=== PATIENT | female | born 1985 | race Caucasian/White ===

== ENCOUNTER 2016-08-22 21:25 | Emergency (ER) | payer OTHER ==
[~2016-08-22] VITALS: Ht 165.1 cm; Wt 59.1 kg
[~2016-08-22 21:25] MED LIST: ONDA4TAB9 PO
[2016-08-22 21:35] VITALS: BP 117/74; PULSE 75; RESP 16; O2SAT 99
--- NOTE | 2016-08-22 23:25 | ED.REPORT ---
HPI-Headache Date of Service Aug 22, 2016 ED Provider: Keith Maguire DO The patient is a 31 year old female w/ a hx of migraines who presents to the ED due to a migraine then began 2 days ago shortly after waking up. She denies neck pain or stiffness. Headache was not maximal at onset nor was it the worst of her life. She did have some body soreness, changes in vision, flashing lights, photophobia, and blurred vision. Her vision still slightly blurred at the ED however this is improving. She used to give migraines regularly, but after she had children they went away. This is her first migraine since having kids. She is still . She denies fever, vomiting, diarrhea, and . Nursing Notes Stated Complaint: VISION CHANGES, BLURRED, SPOTTED Chief Complaint: Headache Nursing Notes Reviewed: Yes Allergies: Coded Allergies: No Known Allergies (Unverified , 08/22/16) Scheduled PRN Ondansetron ODT (Zofran ODT) 4 Mg Tablet 4 MG PO Q4H PRN PRN For Nausea General Time Seen by MD: 23:25 Chief Complaint Headache Hx Obtained From: Patient Arrived By: Walk-in Sudden in Onset?: Yes Onset Occurred: 2 days ago Symptom Duration: Since onset Quality: Painful Severity: Current: Mild Recent Healthcare: No recent doctor visit, No recent hospitalization Similar Sx Previous: Yes Risk-Headache NIH Stroke Scale Level of Consciousness: Alert and responsive (0) Ask Month & Age: Both questions right (0) Open/Close Eyes/Hand Information Resources Manager: Performs both tasks (0) Horizontal EO Movements: None (0) Visual Martin: No visual loss (0) Facial Palsy: Normal symmetry (0) Right Arm Motor Drift (10s): No drift 10 sec (0) Left Arm Motor Drift (10s): No drift 10 sec (0) Right Leg Motor Drift (5s): No drift 5 sec (0) Left Leg Motor Drift (5s): No drift 5 sec (0) Limb Ataxia FNF/Heel-Kang: No ataxia (0) Sensation (Arms/Legs/Face): No sensory loss (0) Language Aphasia: No aphasia, normal (0) Dysarthria: No dysarthria, normal (0) Extinction/Inattention: No exctinct/inattent (0) NIHSS Score: 0 Time NIHSS Performed: 00:03 Date NIHSS Performed: Aug 23, 2016 Past Medical History Past Medical History UTIs PVC's- takes metoprolol as needed Reports: Migraines Past Surgical History None Family History Noncontributory Smoking History Never Smoker Social History Alcohol Use: "Social" Other Social History: Good social support Ambulatory Status Independent Review of Systems Constitutional: Denies: Fever Eyes: Reports: Blurred bilateral, Photophobia GI: Denies: Nausea, Vomiting Neurologic: Reports: Headache, Vision change, Denies: Numbness Complete sys rev & neg: except as marked. Physical Exam Initial Vital Signs Vital Signs (First) Date Time Temp Pulse Resp B/P Pulse Ox O2 Delivery O2 Flow Rate FiO2 08/22/16 21:35 36.5 75 16 117/74 99 Room Air Initial VS: Reviewed ENT: Mucous membranes moist, Conjunctiva normal Respiratory: Breath sounds normal, Clear to auscultation Cardiovascular: Regular rate & rhythm, Heart sounds normal Abdomen / GI: Soft, Non-tender, No guarding, No rebound Extremities: Vascular intact, Neuro intact, No swelling Skin: Warm, Dry General/Constitutional: Awake, Alert, Well appearing, Cooperative, Not toxic appearing Head / Eyes: Atraumatic, Normocephalic, PERRL, EOMI Neck: Atraumatic, Supple, No meningismus Neurologic: Oriented X3, Speech NL, No motor deficits, No sensory deficits, Reflexes equal bilat Interpretation & Diagnostics Lab Results Interpretation Result Diagram: 08/23/16 0032 08/23/16 0032 Test 08/23/16 00:32 White Blood Count 6.4th/mm3 (3.8-10.1) Red Blood Count 3.92mil/mm3 (3.90-5.20) Hemoglobin 11.8g/dL (12.0-15.6) Hematocrit 36.3% (35.0-46.0) Mean Corpuscular Volume 92.6fL (81-100) Mean Corpuscular Hemoglobin 30.1pg (27.0-35.0) Mean Corpuscular Hemoglobin Concent 32.5% (32.0-37.0) Red Cell Distribution Width 12.9% (12.3-15.4) Platelet Count 244bil/L (150-400) Neutrophils (%) (Auto) 53.8% (40-74) Lymphocytes (%) (Auto) 31.4% (14-46) Monocytes (%) (Auto) 12.3% (4-12) Eosinophils (%) (Auto) 2.0% (0-5) Basophils (%) (Auto) 0.3% (0-3) Sodium Level 140mEq/L (134-144) Potassium Level 3.7mEq/L (3.5-5.2) Chloride Level 102mEq/L (97-108) Carbon Dioxide Level 24mmol/L (18-29) Blood Urea Nitrogen 21mg/dL (6-20) Creatinine 0.68mg/dL (0.57-1.00) Estimat Glomerular Filtration Rate 145mL/min (>59) Glucose Level 167mg/dL (60-99) Calcium Level 9.0mg/dL (8.5-10.1) Total Bilirubin 0.2mg/dL (0.0-1.2) Aspartate Amino Transf (AST/SGOT) 17U/L (0-50) Alanine Aminotransferase (ALT/SGPT) 11U/L (0-32) Alkaline Phosphatase 54U/L (25-150) C-Reactive Protein 0.9mg/dL (0.0-0.5) Total Protein 6.9g/dL (6.4-8.4) Albumin 4.2g/dL (3.4-5.0) Hold Birch Top Tube Received (Received) CT Head Interpretation IMPRESSION: no acute findings Study: Head CT no contrast Interpretation / Wet Read by: Wet read ED physician NL CT Head Findings: No acute disease Re-Eval/Medical Decision Med Decision/Clinical Course CT scan is reassuring. Laboratory work is reassuring. Her symptoms are not consistent with subarachnoid hemorrhage or meningitis I was more concerned about a mass lesion pushing on her optic nerve. Optic neuritis seems less likely but still the differential. No signs of an acute emergent condition right now however I think she is going to need outpatient follow-up. The blurred vision is concerning enough that she should see an binder and box builder. I would also consider seeing a neurologist for possible MRI if multiple sclerosis is a possibility. She was asymptomatic at discharge. Her visual acuity was intact. Her retinas look normal to me. I think she I did not dilate her pupils however. Pupils were equal and reactive. Her NIH stroke score was 0. I will place her on Imitrex and Phenergan for the next headache that she has however I recommend close outpatient follow-up. Re-Evaluation/Progress : Time of Eval: 00:04 Re-Evaluation/Progress Note: Pt rechecked. NIH stroke scale O. Counseled Regarding: Diagnosis, Lab results, Need for follow-up, When/why to return to ED Discharge & Departure Impression: Primary Impression: Headache Headache type: unspecified Headache chronicity pattern: acute headache Intractability: not intractable Qualified Code: R51 - Headache Disposition: Home Discharge Condition All VS Reviewed: Yes Condition: Stable Additional Instructions: Your CT scan was reassuring. Follow up with an binder and box builder and neurologist. Return to the Emergency Department for any new or worsening symptoms. Call the referral physicians offices on Thursday for a follow up appointment. Your primary care physician should be seen in follow up as well. . For your next headache you may take 1 Imitrex every 8 hours. Take 1 Phenergan every 8 hours as needed for nausea. Rest in a darkened room. Do not breast-feed for 4-6 hours after taking either of these medications. If you develop a fever or sudden onset severe headache or associated neck stiffness then come right back to the emergency department for recheck. Do not drive while taking the Phenergan. Return if any problems or any worsening symptoms. Referrals: Casey Camacho DO (PCP) Monica Clay MD, Patti J MD Scribe Attestation Portion of this note were transcribed by Elizabeth Camarillo. I, Dr. Maguire, personally performed the history, physical exam, and medical decision-making: I reviewed and confirmed the accuracy for the information in the transcribed note. Signed by: chioma Mcdowell, 08/23/16 0100 copies to: Casey Camacho DO; Monica Clay MD; Ally Moore MD, Todd P DO Aug 22, 2016 23:25 Elizabeth Camarillo Aug 23, 2016 00:02
[2016-08-23 00:39] LABS: BASOPHILS % (AUTO) 0.3 % (0-3); MONOCYTES % (AUTO) 12.3 % (4-12); Mean Corpuscular Hemoglobin 30.1 pg (27.0-35.0); Mean Corpuscular Volume 92.6 fL (81-100); NEUTROPHILS % (AUTO) 53.8 % (40-74); Platelet Count 244 bil/L (150-400)
--- NOTE | 2016-08-23 06:20 | DRSVH ---
PROCEDURE: CT BRAIN WITHOUT CONTRAST ([id number]) INDICATIONS: headache blurred vision TECHNIQUE: Noncontrast 4.5 mm thick angled axial sections acquired from the foramen magnum to the vertex, with c oronal reformats. COMPARISON: None. FINDINGS: Image quality: Excellent. CSF spaces: Basal cisterns are patent. No extra-axial fluid collections. Ventricles are normal in size and shape. Brain: No midline shift. No intracranial masses or hemorrhage. Ruelas-white matter interface is norm al. Skull and face: Calvarium and visualized facial bones are intact, without suspicious lesions. Sinuses: Visualized sinuses demonstrate near-complete opacification of left sphenoid sinus. IMPRESSION: 1. No acute intracranial process. 2. Near complete opacification of the sphenoid sinus consistent with sinus disease. Dictated by: Nisreen Hoskins M.D. on 08/23/2016 at 6:17 Approved by: Nisreen Hoskins M.D. on 08/23/2016 at 6:18
== END 2016-08-23 03:21 | disposition home or self-care (01) ==
LOC: SED 21:25
DX: R51 Headache (principal)

== ENCOUNTER 2016-08-23 22:18 | Emergency (ER) | payer OTHER ==
[~2016-08-23] VITALS: Ht 165.1 cm; Wt 59.1 kg
[2016-08-23 22:23] VITALS: BP 97/67; PULSE 88; RESP 16; O2SAT 98
--- NOTE | 2016-08-23 22:47 | ED.REPORT ---
HPI-Headache Date of Service Aug 23, 2016 ED Provider: Kostas Easley MD Nursing Notes Stated Complaint: HEADACHE, BLURRED VISION Chief Complaint: Headache Nursing Notes Reviewed: Yes Allergies: Coded Allergies: No Known Allergies (Unverified , 08/22/16) Scheduled PRN Ondansetron ODT (Zofran ODT) 4 Mg Tablet 4 MG PO Q4H PRN PRN For Nausea General Time Seen by MD: 22:41 Chief Complaint Migraine headache Hx Obtained From: Patient Arrived By: Walk-in Sudden in Onset?: No Onset Occurred: 2 days ago Symptom Duration: Since onset Location: : Generalized Quality: Painful Severity: Current: Severe Severity: Maximum: Severe Recent Healthcare: Recent doctor visit Similar Sx Previous: Yes Past Medical History Past Medical History UTIs PVC's- takes metoprolol as needed Reports: Migraines Past Surgical History None Family History Noncontributory Smoking History Never Smoker Social History Alcohol Use: "Social" Other Social History: Good social support Ambulatory Status Independent Physical Exam Initial Vital Signs Vital Signs (First) Date Time Temp Pulse Resp B/P Pulse Ox O2 Delivery O2 Flow Rate FiO2 08/23/16 22:23 36.6 88 16 97/67 98 Room Air Discharge & Departure Referrals: Casey Camacho DO (PCP) Kostas Easley MD Aug 23, 2016 22:47 Roopa Tran Aug 23, 2016 22:56
--- NOTE | 2016-08-23 22:57 | ED.REPORT ---
HPI-Headache Date of Service Aug 23, 2016 ED Provider: Keith Maguire DO A 31 year old female with a history of UTI and migraines presents to the ED complaining of headache and vision changes. The pt was seen in the ED yesterday for a headache and vision changes. Her condition improved and she was discharged with Imitrex and Phenergan. The pt woke this morning without a headache, but began experiencing a severe headache and vision changes after waking from a nap later in the day. She describes blurred vision and loss of visual acuity in her left eye. These symptoms have not improved since despite the use of medication. Nursing Notes Stated Complaint: HEADACHE, BLURRED VISION Chief Complaint: Headache Nursing Notes Reviewed: Yes Allergies: Coded Allergies: No Known Allergies (Unverified , 08/22/16) Scheduled PRN Ondansetron ODT (Zofran ODT) 4 Mg Tablet 4 MG PO Q4H PRN PRN For Nausea General Time Seen by MD: 22:56 Chief Complaint Other (Vision loss) Hx Obtained From: Patient Arrived By: Walk-in Sudden in Onset?: Yes Onset Occurred: 5 - 8 hours ago Symptom Duration: Since onset Recent Healthcare: No recent hospitalization, Recent doctor visit Similar Sx Previous: No Past Medical History Past Medical History UTIs PVC's- takes metoprolol as needed migraines Reports: Migraines Past Surgical History x2 Family History Noncontributory Smoking History Never Smoker Social History Alcohol Use: "Social" Other Social History: Good social support, Ambulatory Status Independent Review of Systems Constitutional: Denies: Fever Eyes: Reports: Blurred left, Visual loss left (loss of visual acuity) GI: Denies: Abdominal pain Musculoskeletal: Denies: Back pain Skin: Denies Rash Neurologic: Reports: Headache Complete sys rev & neg: except as marked. Physical Exam Initial Vital Signs Vital Signs (First) Date Time Temp Pulse Resp B/P Pulse Ox O2 Delivery O2 Flow Rate FiO2 08/23/16 22:23 36.6 88 16 97/67 98 Room Air Initial VS: Reviewed General/Constitutional: Awake, Alert Head / Eyes: Atraumatic, Normocephalic, PERRL, EOMI blurred vision in the left eye visual acuity loss Neck: Atraumatic, Supple, Full range of motion Neurologic: Oriented X3, Speech NL, No motor deficits, No sensory deficits ENT: Atraumatic, Airway patent, Mucous membranes moist Respiratory / Chest: Atraumatic, Breath sounds NL, Breath sounds = bilat, No respiratory distress Cardiovascular: Heart rate NL, Regular rhythm, Heart sounds NL Abdomen: Atraumatic, Soft, Non-tender Skin: Atraumatic, Color NL, No rash, Warm, Dry Psychiatric: Affect NL, Mood NL Back: Atraumatic, Full range of motion Upper Extremity / MS: Atraumatic, Full range of motion Lower Extremity / Pelvis / MS: Atraumatic, Full range of motion Interpretation & Diagnostics Lab Results Interpretation Result Diagram: 08/23/162304 Test 08/23/16 23:05 08/23/16 23:30 White Blood Count 5.9th/mm3 (3.8-10.1) Red Blood Count 4.05mil/mm3 (3.90-5.20) Hemoglobin 12.2g/dL (12.0-15.6) Hematocrit 36.9% (35.0-46.0) Mean Corpuscular Volume 91.1fL (81-100) Mean Corpuscular Hemoglobin 30.1pg (27.0-35.0) Mean Corpuscular Hemoglobin Concent 33.1% (32.0-37.0) Red Cell Distribution Width 12.8% (12.3-15.4) Platelet Count 273bil/L (150-400) Neutrophils (%) (Auto) 46.0% (40-74) Lymphocytes (%) (Auto) 34.8% (14-46) Monocytes (%) (Auto) 16.5% (4-12) Eosinophils (%) (Auto) 2.2% (0-5) Basophils (%) (Auto) 0.3% (0-3) Band Neutrophils % 0% (1-5) Hold Birch Top Tube Received (Received) CSF Appearance Clear (CLEAR) CSF Color Colorless (COLORLESS) CSF WBC 0/mm3 (0-5) CSF RBC 0/mm3 CSF Mononuclear WBCs % CSF Polynuclear WBCs % CSF Other Cells CSF Glucose 56mg/dL (45-90) CSF Total Protein 27mg/dL (15-45) Pulse Oximetry Interpretation Pulse Oximetry Interpretation: 98% on room air Pulse Oximetry: Pulse Ox normal Procedures Lumbar Puncture Text / Dict Note: opening pressure: 7 mm of water Time: 23:22 Procedure Performed by: ED physician Consent / Setup / Site Prep: Informed consent provided, Consent from patient , Time-out performed, Hand hygiene observed, Stand sterile technique, Sterile drapes applied, Patient left lateral Skin Preparation Agent: Betadine Local Anesthesia: Lidocaine 1% Inserted Needle at: L3 L4 Post-Procedure / Complications: Antibiotic oint applied, Dressing applied, No complications, Tolerated procedure well, Patient stable Re-Eval/Medical Decision Med Decision/Clinical Course Normal opening and closing CSF pressure. CSF studies were normal. Meningitis and subarachnoid hemorrhage adequately ruled out. Will treat for migraine and follow up with neurology to consider MRI for possible multiple sclerosis workup. I also recommend that she sees an assisted living director event that she has a refractive error leading to her headaches. No signs or symptoms consistent with acute angle closure glaucoma. Source of Hx: Old records Re-Evaluation/Progress #1: Time of Eval: 23:22 )( Patient Status: Condition improved Re-Evaluation/Progress Note: Pt rechecked, who is comfortable. Lumbar puncture is performed without complication. Re-Evaluation/Progress #2: Time of Eval: 00:14 )( Patient Status: Condition improved Re-Evaluation/Progress Note: Pt rechecked, whose condition has improved. She is informed of her lab results. The diagnosis and plan for discharge are discussed. The pt understands and agrees with the plan. All questions are addressed at this time. Counseled Regarding: Diagnosis, Lab results, Need for follow-up, When/why to return to ED Discharge & Departure Impression: Primary Impression: Headache Headache type: unspecified Headache chronicity pattern: acute headache Intractability: not intractable Qualified Code: R51 - Headache Disposition: Home Discharge Condition All VS Reviewed: Yes Condition: Stable Patient Instructions: Acute Headache (ED), Migraine Headache (DC) Additional Instructions: The cerebrospinal fluid studies were normal. No signs of meningitis or subarachnoid hemorrhage. Normal protein content. I suspect that sure suffering with migraines. I do recommend that she follow-up with an life insurance specialist that we at least once to be sure that it is not a refractive error causing her headaches and blurred vision. I also recommended to follow-up and discussed her symptoms with a neurologist and consider MRI. Primary care physician could certainly set up for an MRI as well. Use the medications as prescribed yesterday. Do not drive today is to receive sedating medications. Return if any problems or any new or worsening symptoms. Referrals: Casey Camacho DO (PCP) Ramirez Attestation Portions of this note were transcribed by Fatou Brody. I, Dr. Maguire personally performed the history, physical exam and medical decision-making; I reviewed and confirmed the accuracy of the information in the transcribed note. Signed by: Ramirez Coulter, 08/24/16 and 0032. copies to: Casey Camacho DO; Ally Moore MD; Mason Campos MD, Todd P DO Aug 23, 2016 22:57 FATOU BRODY Aug 23, 2016 23:08
[2016-08-23] MEDS ORDERED: Ondansetron 2 mg/mL 2 mL Inj IVPUSH PRN (23:05)
[2016-08-23 23:24] LABS: Mean Corpuscular Hemoglobin 30.1 pg (27.0-35.0); Mean Corpuscular Volume 91.1 fL (81-100)
[2016-08-23 23:25] LABS: BASOPHILS % (AUTO) 0.3 % (0-3); EOSINOPHILS % (AUTO) 2.2 % (0-5); MONOCYTES % (AUTO) 16.5 % (4-12); Platelet Count 273 bil/L (150-400)
[2016-08-23] MEDS: fentaNYL-PF 50 mCg/mL 2 mL Inj IVPUSH PRN ×2 (23:25→23:45)
[2016-08-23] MEDS ORDERED: Dexamethasone Inj 10 MG in 0.9% Sodium Chloride-Pha MIX 50 ML IV ONE (23:45)
[2016-08-23] MEDS ORDERED: 0.9% Sodium Chloride 1,000 ML IV ONE (23:45)
[2016-08-24 00:14] LABS: APPEARANCE,CSF CLEAR (CLEAR); COLOR,CSF COLORLESS (COLORLESS); WHITE BLOOD CELL,CSF 0 /mm3 (0-5)
== END 2016-08-24 01:15 | disposition home or self-care (01) ==
LOC: SED 22:18
DX: R51 Headache (principal); H53.8 Other visual disturbances; Z87.440 Personal history of urinary (tract) infections
CPT/HCPCS: 36415; 62270; 82945; 84155; 85025; 87070; 87205; 89051; 96374; 96375; 99285; J1100; J1200; J2405; J3010; J7030

== ENCOUNTER 2016-08-25 19:24 | Emergency (ER) | payer OTHER ==
[~2016-08-25] VITALS: Ht 165.1 cm; Wt 59.1 kg
[2016-08-25 19:28] VITALS: BP 107/59; PULSE 64; RESP 16; O2SAT 100
--- NOTE | 2016-08-25 21:15 | ED.REPORT ---
HPI-Headache Date of Service August 25, 2016 ED Provider: Caitlin Garcia MD The patient is a 31 year old female who presents to the emergency department complaining of an intermittent diffuse headache that began 5 days ago. She has also noticed blurred vision and "flashes of lights." Her pain and visual changes has fluctuated since onset. Her pain is currently at a 6-7/10. She has been seen twice since onset and had a normal head CT during the first visit and a negative lumbar puncture during the second visit. She has had an intermittent sore throat over the last few months, she has had negative strep swabs. She has had headaches prior to having children but she has not had any recently. She has been able to eat and drink normally. She denies fever, chills, nausea, vomiting, numbness, weakness or problem walking. Nursing Notes Stated Complaint: SEVERE HEADACHE, VISION PROBLEMS Chief Complaint: Headache Nursing Notes Reviewed: Yes Allergies: Coded Allergies: No Known Allergies (Unverified , 08/25/16) Scheduled PRN Ondansetron ODT (Zofran ODT) 4 Mg Tablet 4 MG PO Q4H PRN PRN For Nausea General Time Seen by MD: 21:07 Chief Complaint Headache Hx Obtained From: Patient, Spouse Arrived By: Walk-in Sudden in Onset?: No Onset Occurred: 5 days ago Symptom Duration: Intermittent Location: : Generalized Quality: Painful Severity: Current: Moderate Severity: Maximum: Severe Recent Healthcare: Recent doctor visit, Prior workup (LP and head CT) Similar Sx Previous: No Past Medical History Past Medical History UTIs PVC's- takes metoprolol as needed Reports: Migraines Past Surgical History x2 Family History Noncontributory Smoking History Never Smoker Social History Alcohol Use: "Social" Other Social History: Good social support, , Local resident Ambulatory Status Independent Review of Systems Constitutional: Denies: Chills, Fever Eyes: Reports: Blurred bilateral Ears / Nose / Throat: Reports: Sore throat GI: Denies: Nausea, Vomiting Neurologic: Reports: Headache, Vision change, Denies: Focal weakness, Numbness, Problem walking, Weakness Complete sys rev & neg: except as marked. Physical Exam Initial Vital Signs Vital Signs (First) Date Time Temp Pulse Resp B/P Pulse Ox O2 Delivery O2 Flow Rate FiO2 08/25/16 19:28 36.0 64 16 107/59 100 Room Air Initial VS: Reviewed, Vital signs normal ENT: Mucous membranes moist, Conjunctiva normal, No scleral icterus Respiratory: Breath sounds normal, Clear to auscultation, No respiratory distress Cardiovascular: Regular rate & rhythm, Heart sounds normal, Intact distal pulses Abdomen / GI: Soft, Non-tender, No guarding, No rebound, No distention Lymphatic: No lymphadenopathy Extremities: Vascular intact, Neuro intact, No swelling, No tenderness Skin: Warm, Dry, No cyanosis Psychiatric: Mood/affect normal, Behavior normal, Normal thought content General/Constitutional: Awake, Alert Head / Eyes: Atraumatic, Normocephalic, PERRL, EOMI, No nystagmus, No photophobia, Conjunctiva NL, Temporal arteries NL Neck: Atraumatic, Supple, No meningismus, Full range of motion, No swelling, Non-tender, No masses Neurologic: Oriented X3, Speech NL, No motor deficits, No sensory deficits, CN II - XII intact, Cerebellar NL, Memory NL Re-Eval/Medical Decision Med Decision/Clinical Course The patient presents with her third visit for headache. From her history I was not concerned for intracranial mass, meningitis, or hemorrhage. The patient has already had a CT and lumbar puncture. She is G symptomatically here with significant improvement in her headache. She given additional medication to completely resolve her headache but she declined. Source of Hx: Old records, Family Re-Evaluation/Progress : Time of Eval: 22:30 Re-Evaluation/Progress Note: Rechecked the patient. She is feeling better. Discussed previous results, today's exam findings, diagnosis, and plan for discharge. All questions were addressed. Counseled Regarding: Diagnosis, Need for follow-up, When/why to return to ED Discharge & Departure Impression: Primary Impression: Headache Headache type: unspecified Headache chronicity pattern: unspecified pattern Intractability: not intractable Qualified Code: R51 - Headache Disposition: Home Discharge Condition All VS Reviewed: Yes Condition: Stable Patient Instructions: Acute Headache (ED) Additional Instructions: Thank you for entrusting us with your care today. Your exam findings and head CT and lumbar puncture results from your previous visits are reassuring. I do not believe you will benefit from any further workup today. Make sure to drink plenty of fluids. Use ibuprofen or naproxen as needed for your pain. The next step is to followup with a neurologist. I recommend calling around to other neurology offices to see if you are able to get an earlier appointment. Seek care for fever, vomiting, neck pain, or any other new or worsening symptoms. Referrals: Casey Camacho DO (PCP) Ramirez Attestation Portions of this note were transcribed by Mary Cash. I, Dr. Garcia personally performed the history, physical exam and medical decision-making; I reviewed and confirmed the accuracy of the information in the transcribed note. Signed by: Ramirez Degroot, 08/25/2016 at 2245. copies to: Casey Camacho Jena M MD August 25, 2016 21:15 Mary Cash August 25, 2016 21:19
[2016-08-25] MEDS ORDERED: ProchlorPERazine 5 mg/mL 2 mL Inj IVPUSH ONE (21:30)
[2016-08-25] MEDS ORDERED: 0.9% Sodium Chloride 1,000 ML IV ONE (21:30)
[2016-08-25] MEDS ORDERED: Dexamethasone Inj 10 MG in 0.9% Sodium Chloride-Pha MIX 50 ML IV ONE (21:30)
[2016-08-25 22:55] VITALS: BP 99/67; PULSE 58; RESP 16; O2SAT 98
== END 2016-08-25 22:33 | disposition home or self-care (01) ==
LOC: SED 19:42
DX: R51 Headache (principal)
CPT/HCPCS: 96374; 96375; 99284; J0780; J1100; J1200; J1885; J7030

== ENCOUNTER 2016-08-27 19:12 | Emergency (ER) | payer OTHER ==
[~2016-08-27] VITALS: Ht 165.1 cm; Wt 59.1 kg
[2016-08-27 19:22] VITALS: BP 116/74; PULSE 71; RESP 16; O2SAT 99
--- NOTE | 2016-08-27 21:23 | ED.REPORT ---
HPI-Headache Date of Service August 27, 2016 ED Provider: Shahram Soto MD A 31 year old female with a history of UTI and PVCs presents to the ED with a generalized headache onset one week ago. The headache began benignly, but then the patient developed blurred vision five days ago and tinnitus today. She has been seen in the ED three times since onset, most recently 08/25/16, and has received a negative head CT and a negative LP. The patient reports a recent sore throat but denies other recent illness. She denies numbness, weakness, bilateral lower extremity swelling, neck stiffness, cough, or other symptoms. The patient also denies recent trauma, recent ill contacts, or recent travel. She has been given many different headache medications with no relief. The patient was seen by an dry clipper tender today, who did "many different tests" and referred her to a neuro-dry clipper tender. Nursing Notes Stated Complaint: HEADACHE/MIGRANE X 1 WEEK Chief Complaint: Headache Nursing Notes Reviewed: Yes ([facility] app not reconciled) Allergies: Coded Allergies: No Known Allergies (Unverified , 08/27/16) Scheduled PRN Ondansetron ODT (Zofran ODT) 4 Mg Tablet 4 MG PO Q4H PRN PRN For Nausea General Time Seen by MD: 21:20 Chief Complaint Headache Hx Obtained From: Patient Arrived By: Walk-in Sudden in Onset?: No Onset Occurred: 1 week ago Symptom Duration: Since onset Location: : Generalized Quality: Painful Severity: Current: Moderate Severity: Maximum: Moderate Pertinent Negative: Relieved by nothing Recent Healthcare: Recent doctor visit, Recent testing, Prior workup Past Medical History Past Medical History Notes: Seen in the ED 08/22, 08/23, and 08/25 for headaches-head CT, LP negative on 08/23/16 Past Medical History UTIs PVC's- takes metoprolol as needed Reports: Migraines Past Surgical History x2 Family History Noncontributory Smoking History Never Smoker Social History Alcohol Use: "Social" Other Social History: Good social support, , Local resident Ambulatory Status Independent Review of Systems Review of Systems Note: + Tinnitus - Neck stiffness Constitutional: Denies: Fever Eyes: Reports: Blurred bilateral Ears / Nose / Throat: Reports: Sore throat (Recently) GI: Denies: Diarrhea, Vomiting Musculoskeletal: Denies: Extremity swelling Neurologic: Reports: Headache, Denies: Numbness, Weakness Complete sys rev & neg: except as marked. Respiratory: Denies: Non-productive cough, Shortness of breath Physical Exam Initial Vital Signs Vital Signs (First) Date Time Temp Pulse Resp B/P Pulse Ox O2 Delivery O2 Flow Rate FiO2 08/27/16 19:22 36.0 71 16 116/74 99 Room Air Initial VS: Reviewed ENT: Conjunctiva normal, No scleral icterus Respiratory: Breath sounds normal, Clear to auscultation, No respiratory distress Cardiovascular: Regular rate & rhythm, Heart sounds normal Skin: Warm, Dry Psychiatric: Mood/affect normal, Behavior normal General/Constitutional: Awake, Alert Head / Eyes: Atraumatic, Normocephalic, PERRL, EOMI Temporal Artery: Negative: Temp artery tender bilat Neck: Supple, Full range of motion Neurologic: Oriented X3, Speech NL, No motor deficits, No sensory deficits Interpretation & Diagnostics Lab Results Interpretation Test 08/27/16 22:23 08/27/16 22:24 Erythrocyte Sedimentation Rate 9mm/hr (0-32) Hold Birch Top Tube Received (Received) Lab Results Interpretation: Sedimentation rate 9, normal Re-Eval/Medical Decision Med Decision/Clinical Course This is a 31-year-old female who presents to the emergency department with a persistent headache. She still had it for 5-6 days. She has had multiple ED visits, and extensive workup that included negative head CT, and a normal lumbar puncture. She returns, headaches not as severe, has no fever, no neck stiffness, no neurologic symptoms, no history of trauma, still has some borderline visual symptoms, she has a little bit of tenderness as well developing. She seen by ophthalmology today, definitive etiology has not been established. She was, including promethazine, ibuprofen with inadequate relief and still feels uncomfortable. Mild positional component, but it preceded the lumbar puncture-and is only mild. Exam she sitting in a dark room, she is has a normal neurologic exam without focal deficits. Her ABCD visits workup and reviewed, the patient's R he had major pathology excluding the CT and LP negative. She clinically appears well. She does not have classic temporal artery tenderness but combination of unexplained headache and visual symptoms, sedimentation rate was added-and is returned normal. The patient has tried multiple rounds of the standard headache pathway, and so today given the recurrent-a single dose of Dilaudid was given-with relief of symptoms. She is being discharged with a few hydrocodone, but still advised to follow up with neurology and a referral to Dr. Lee's office has been provided. Return precautions reviewed. The patient clinically appears well. vitals are normal. Labs are normal. CT/LP are normal. She feels much better and wishes to go home. Although she has had multiple provider visits, I am not finding indication for emergent MRI imaging at this hour, but I think the patient about outpatient to have that considered as the next step. Source of Hx: Old records Re-Evaluation/Progress : Time of Eval: 22:56 )( Patient Status: Condition improved Re-Evaluation/Progress Note: Patient is feeling much better. Discussed with patient lab results, diagnosis, and plan for discharge. Follow-up and return to the ER instructions given. Patient agrees with plan for care and all questions were addressed. Differential Diagnosis: Positive: Headache, Negative: Carbon monoxide toxicity, Carotid artery dissection, Cerebellar ischemia, Cerebrovascular accident, Closed head injury, Encephalitis, Fever- induced, Headache, hypertensive, Headache, muscular contra, Headache, post LP, Headache, post-traumatic, Hemorrhage, cerebellar, Hemorrhage, epidural, Hemorrhage, subarachnoid, Hemorrhage, subdural, Intracranial abscess, Medication reaction, Meningitis, Sinusitis, Temporal arteritis Counseled Regarding: Diagnosis, Lab results, Need for follow-up, When/why to return to ED Discharge & Departure Impression: Primary Impression: Headache Headache type: unspecified Headache chronicity pattern: acute headache Intractability: not intractable Qualified Code: R51 - Headache Disposition: Home Discharge Condition All VS Reviewed: Yes Condition: Improved Additional Instructions: 1. You had a blood test call a "sed rate" to evaluate for temporal arteritis as the cause of the headache, but this test was normal. 2. A dangerous cause of the headache has not been identified (we do not know what causes most headaches) 3. Rest. 4. Continue ibuprofen. 5. If needed for more severe headache, take hydrocodone/APAP 5/325 1-2 tabs up to every 6 hours. USE SPARINGLY. Note: This medication contains narcotic and causes drowsiness. No driving for at least 4 hours after taking. Referrals: Casey Camacho DO (PCP) Ramsey Lee MD Scribe Attestation Portions of this note were transcribed by Emilee Corley. I, Dr. Soto, personally performed the history, physical exam, and medical decision-making; I reviewed and confirmed the accuracy of the information in the transcribed note. Signed by: Ramirez Stanton, 08/28/2016, 01:45 copies to: Casey Camacho DO; Ramsey eLe MD, Matthew F MD August 27, 2016 21:23 EMILEE CORLEY August 27, 2016 21:32
[2016-08-27] MEDS ORDERED: HYDROmorphone 0.5 mg/0.5 mL iSecure Syringe IVPUSH ONE (21:35)
[2016-08-27] MEDS ORDERED: ProchlorPERazine 5 mg/mL 2 mL Inj IVPUSH ONE (21:35)
[2016-08-27] MEDS ORDERED: _HYDROcodone/APAP 5-325 mg Tablet PO PRN (23:00)
[2016-08-27 23:49] VITALS: BP 120/78; PULSE 70; RESP 17; O2SAT 99
== END 2016-08-27 23:50 | disposition home or self-care (01) ==
LOC: SED 19:12
DX: R51 Headache (principal); H53.8 Other visual disturbances; H93.19 Tinnitus, unspecified ear; J02.9 Acute pharyngitis, unspecified
CPT/HCPCS: 36415; 85651; 96374; 96375; 99284; J0780; J1170